=== PATIENT | female | born 1960 | race Caucasian/White ===

== ENCOUNTER 2017-10-14 16:09 | Inpatient (IN) | payer MEDICAID ==
[~2017-10-14] VITALS: Ht 162.6 cm; Wt 52.0 kg
[2017-10-14] VITALS (10 sets, daily range): BP systolic 112–166; BP diastolic 65–87; PULSE 89–116; RESP 16–26; TEMP 98.3–98.6; O2SAT 98–100
[2017-10-14] MEDS ORDERED: LORazepam 2 MG/ML VIAL ONE (16:14)
[2017-10-14] MEDS ORDERED: SODIUM CHLOR 0.9% 1000 ML INJ 1,000 ML IV ONE (16:20)
[2017-10-14] MEDS ORDERED: LORazepam 2 MG/ML VIAL IVS ONE (16:30)
[2017-10-14] MEDS ORDERED: SODIUM CHLORIDE 0.9% FLUSH 10 ML FLUSH IVF PRN (16:30)
[2017-10-14 16:37] LABS: BASOPHIL # 0.1 TH/MM3 (0-0.2); BASOPHIL % 0.7 % (0.0-2.0); EOSINOPHIL % 0.2 % (0.0-4.0); HEMATOCRIT 33.2 % (35.0-46.0); HEMOGLOBIN 11.6 GM/DL (11.6-15.3); LYMPH % 27.6 % (9.0-44.0); LYMPHOCYTE # 3.3 TH/MM3 (1.0-4.8); MEAN CELL VOLUME 109.7 FL (80.0-100.0); MEAN CORPUSCULAR HEMOGLOBIN 38.4 PG (27.0-34.0); MEAN PLATELET VOLUME 8.1 FL (7.0-11.0); MONO % 5.3 % (0.0-8.0); MONOCYTE # 0.6 TH/MM3 (0-0.9); NEUT % 66.2 % (16.0-70.0); PLATELET COUNT 306 TH/MM3 (150-450); RED BLOOD COUNT 3.03 MIL/MM3 (4.00-5.30); RED CELL DISTRIBUTION WIDTH 14.6 % (11.6-17.2)
[2017-10-14 16:52] LABS: BACTERIA, URINE MANY /hpf; BLOOD, URINE SMALL (NEG); GLUCOSE,URINE NEG (NEG); HYALINE CAST, URINE 3 /lpf (RARE); KETONE, URINE 40 mg/dL (NEG); MUCUS URINE MANY /lpf (OCC); NITRITE,URINE NEG (NEG); SQUAMOUS EPITHELIAL CELL URINE 1 /hpf (0-5); URINE COLOR YELLOW (YELLW/STRAW); URINE LEUKOCYTE ESTERASE MOD (NEG)
[2017-10-14 16:53] LABS: BILIRUBIN, URINE NEG (NEG)
[2017-10-14 16:58] LABS: ALBUMIN 4.3 GM/DL (3.4-5.0); ALKALINE PHOSPHATASE 89 U/L (45-117); ALT (GPT) 30 U/L (10-53); AST (GOT) 141 U/L (15-37); BLOOD UREA NITROGEN 9 MG/DL (7-18); CALCIUM 8.5 MG/DL (8.5-10.1); CHLORIDE 97 MEQ/L (98-107); CREATININE 1.22 MG/DL (0.50-1.00); GLOMERULAR FILTRATION RATE 38 ML/MIN (>89); GLUCOSE,RANDOM 177 MG/DL (74-106); SODIUM (NA) 138 MEQ/L (136-145); TOTAL BILIRUBIN ADULT 1.1 MG/DL (0.2-1.0); TOTAL PROTEIN 8.7 GM/DL (6.4-8.2)
--- NOTE | 2017-10-14 17:03 | PD ---
HPI Chief Complaint: Seizure Time Seen by Provider: 16:20 Travel History International Travel<30 days: No Contact w/Intl Traveler<30days: No Traveled to known affect area: No History of Present Illness HPI Patient is a 57-year-old female who presents the emergency room with her boyfriend for evaluation of seizure. As per patient's boyfriend, patient is a heavy alcoholic and drinks more than a pint of alcohol per day, reports that he decided yesterday that patient should stop drinking alcohol. Patient reports that her last drink was yesterday afternoon to nighttime. Reports that this morning, patient woke up feeling nauseous and vomited multiple times. Patient was in the car today when all of a sudden she screams and began flailing her arms, reports that she had a seizure episode. Patient presents the emergency room postictal. Patient's boyfriend reports that patient currently does not take any medications, reports that she has no medical problems. Patient unable to provide HPI at this time. [facility] Past Medical History Medical History: Denies Significant Hx Past Surgical History Surgical History: Unable to Obtain Social History Alcohol Use: Yes (ETOH ABUSE) Tobacco Use: No Substance Use: No Allergies-Medications (Allergen,Severity, Reaction): Coded Allergies: No Known Allergies (Unverified , 10/14/17) Reported Meds & Prescriptions Reported Meds & Active Scripts Active No Active Prescriptions or Reported Medications Review of Systems ROS Limitations: Altered Mental Status Physical Exam Narrative GENERAL: Moderate distress SKIN: Focused skin assessment warm/dry. HEAD: Atraumatic. Normocephalic. EYES: Pupils equal and round. No scleral icterus. No injection or drainage. ENT: No nasal bleeding or discharge. Mucous membranes pink and moist. NECK: Trachea midline. No JVD. CARDIOVASCULAR: Regular rate and rhythm. No murmur appreciated. RESPIRATORY: No accessory muscle use. Clear to auscultation. Breath sounds equal bilaterally. GASTROINTESTINAL: Abdomen soft, non-tender, nondistended. Hepatic and splenic margins not palpable. MUSCULOSKELETAL: No obvious deformities. No clubbing. No cyanosis. No edema. NEUROLOGICAL patient is not conversive at this time, she is postictal Data Data Last Documented VS Vital Signs Date Time Temp Pulse Resp B/P (MAP) Pulse Ox O2 Delivery O2 Flow Rate FiO2 10/14/17 17:08 26 98 Nasal Cannula 2.00 10/14/17 16:13 98.6 116 166/87 (113) Orders Orders Lorazepam Inj (Ativan Inj) (10/14/17 16:14) Complete Blood Count With Diff (10/14/17 16:20) Alcohol (Ethanol) (10/14/17 16:20) Drug Screen, Random Urine (10/14/17 16:20) Electrocardiogram (10/14/17 ) Blood Glucose (10/14/17 16:20) Ecg Monitoring (10/14/17 16:20) Iv Access Insert/Monitor (10/14/17 16:20) Oximetry (10/14/17 16:20) Comprehensive Metabolic Panel (10/14/17 16:20) Sodium Chlor 0.9% 1000 Ml Inj (Ns 1000 M (10/14/17 16:20) Sodium Chloride 0.9% Flush (Ns Flush) (10/14/17 16:30) Lorazepam Inj (Ativan Inj) (10/14/17 16:30) Urinalysis - C+S If Indicated (10/14/17 16:20) Cath For Specimen (10/14/17 16:20) Urine Culture (10/14/17 16:20) Ceftriaxone Inj (Rocephin Inj) (10/14/17 17:15) Potassium Chlor 20 Meq Premix (Kcl 20 Me (10/14/17 17:15) Labs Laboratory Tests Test 10/14/17 16:20 10/14/17 16:23 Urine Color YELLOW Urine Turbidity HAZY Urine pH 6.0 Urine Specific [place] 1.019 Urine Protein 100 mg/dL Urine Glucose (UA) NEG mg/dL Urine Ketones 40 mg/dL Urine Occult Blood SMALL Urine Nitrite NEG Urine Bilirubin NEG Urine Urobilinogen 2.0 MG/DL Urine Leukocyte Esterase MOD Urine RBC LESS THAN 1 /hpf Urine WBC 20 /hpf Urine Squamous Epithelial Cells 1 /hpf Urine Bacteria MANY /hpf Urine Hyaline Casts 3 /lpf Urine Mucus MANY /lpf Microscopic Urinalysis Comment CATH-CULTURE IND Urine Opiates Screen NEG Urine Barbiturates Screen NEG Urine Amphetamines Screen NEG Urine Benzodiazepines Screen NEG Urine Cocaine Screen POS Urine Cannabinoids Screen NEG White Blood Count 12.0 TH/MM3 Red Blood Count 3.03 MIL/MM3 Hemoglobin 11.6 GM/DL Hematocrit 33.2 % Mean Corpuscular Volume 109.7 FL Mean Corpuscular Hemoglobin 38.4 PG Mean Corpuscular Hemoglobin Concent 35.0 % Red Cell Distribution Width 14.6 % Platelet Count 306 TH/MM3 Mean Platelet Volume 8.1 FL Neutrophils (%) (Auto) 66.2 % Lymphocytes (%) (Auto) 27.6 % Monocytes (%) (Auto) 5.3 % Eosinophils (%) (Auto) 0.2 % Basophils (%) (Auto) 0.7 % Neutrophils # (Auto) 8.0 TH/MM3 Lymphocytes # (Auto) 3.3 TH/MM3 Monocytes # (Auto) 0.6 TH/MM3 Eosinophils # (Auto) 0.0 TH/MM3 Basophils # (Auto) 0.1 TH/MM3 CBC Comment DIFF FINAL Differential Comment Blood Urea Nitrogen 9 MG/DL Creatinine 1.22 MG/DL Random Glucose 177 MG/DL Total Protein 8.7 GM/DL Albumin 4.3 GM/DL Calcium Level 8.5 MG/DL Alkaline Phosphatase 89 U/L Aspartate Amino Transf (AST/SGOT) 141 U/L Alanine Aminotransferase (ALT/SGPT) 30 U/L Total Bilirubin 1.1 MG/DL Sodium Level 138 MEQ/L Potassium Level 2.7 MEQ/L Chloride Level 97 MEQ/L Carbon Dioxide Level 18.0 MEQ/L Anion Gap 23 MEQ/L Estimat Glomerular Filtration Rate 38 ML/MIN Ethyl Alcohol Level LESS THAN 3 MG/DL MDM Medical Decision Making Medical Screen Exam Complete: Yes Emergency Medical Condition: Yes Medical Record Reviewed: Yes Interpretation(s) Vital Signs Date Time Temp Pulse Resp B/P (MAP) Pulse Ox O2 Delivery O2 Flow Rate FiO2 10/14/17 16:13 98.6 116 16 166/87 (113) 100 Differential Diagnosis Alcohol withdrawal seizures, DTs, electrolyte abnormality Narrative Course During the course of the patients emergency department visit, the patients history, examination, and differential diagnosis were reviewed with the patient. The patient was placed on a night monitor with oximetry and frequent blood pressure monitoring. The patient had an IV access obtained and blood work sent for analysis. Patient was placed on seizure precautions The patient was initially provided IV fluids as well as 2 mg of IV Ativan, she is also given 1 mg of IV Rocephin for her UTI The patients laboratory studies were reviewed and remarkable for: Laboratory Tests Test 10/14/17 16:20 10/14/17 16:23 Urine Color YELLOW (YELLW/STRAW) Urine Turbidity HAZY (CLEAR) Urine pH 6.0 (5.0-8.5) Urine Specific [place] 1.019 (1.002-1.035) Urine Protein 100 mg/dL (NEG-TRACE) Urine Glucose (UA) NEG mg/dL (NEG) Urine Ketones 40 mg/dL (NEG) Urine Occult Blood SMALL (NEG) Urine Nitrite NEG (NEG) Urine Bilirubin NEG (NEG) Urine Urobilinogen 2.0 MG/DL (LESS THAN Urine Leukocyte Esterase MOD (NEG) Urine RBC LESS THAN 1 /hpf (0-3) Urine WBC 20 /hpf (0-5) Urine Squamous Epithelial Cells 1 /hpf (0-5) Urine Bacteria MANY /hpf (NONE) Urine Hyaline Casts 3 /lpf (RARE) Urine Mucus MANY /lpf (OCC) Microscopic Urinalysis Comment CATH-CULTURE IND Urine Opiates Screen NEG (NEG) Urine Barbiturates Screen NEG (NEG) Urine Amphetamines Screen NEG (NEG) Urine Benzodiazepines Screen NEG (NEG) Urine Cocaine Screen POS (NEG) Urine Cannabinoids Screen NEG (NEG) White Blood Count 12.0 TH/MM3 (4.0-11.0) Red Blood Count 3.03 MIL/MM3 (4.00-5.30) Hemoglobin 11.6 GM/DL (11.6-15.3) Hematocrit 33.2 % (35.0-46.0) Mean Corpuscular Volume 109.7 FL (80.0-100.0) Mean Corpuscular Hemoglobin 38.4 PG (27.0-34.0) Mean Corpuscular Hemoglobin Concent 35.0 % (32.0-36.0) Red Cell Distribution Width 14.6 % (11.6-17.2) Platelet Count 306 TH/MM3 (150-450) Mean Platelet Volume 8.1 FL (7.0-11.0) Neutrophils (%) (Auto) 66.2 % (16.0-70.0) Lymphocytes (%) (Auto) 27.6 % (9.0-44.0) Monocytes (%) (Auto) 5.3 % (0.0-8.0) Eosinophils (%) (Auto) 0.2 % (0.0-4.0) Basophils (%) (Auto) 0.7 % (0.0-2.0) Neutrophils # (Auto) 8.0 TH/MM3 (1.8-7.7) Lymphocytes # (Auto) 3.3 TH/MM3 (1.0-4.8) Monocytes # (Auto) 0.6 TH/MM3 (0-0.9) Eosinophils # (Auto) 0.0 TH/MM3 (0-0.4) Basophils # (Auto) 0.1 TH/MM3 (0-0.2) CBC Comment DIFF FINAL Differential Comment Blood Urea Nitrogen 9 MG/DL (7-18) Creatinine 1.22 MG/DL (0.50-1.00) Random Glucose 177 MG/DL (74-106) Total Protein 8.7 GM/DL (6.4-8.2) Albumin 4.3 GM/DL (3.4-5.0) Calcium Level 8.5 MG/DL (8.5-10.1) Alkaline Phosphatase 89 U/L (45-117) Aspartate Amino Transf (AST/SGOT) 141 U/L (15-37) Alanine Aminotransferase (ALT/SGPT) 30 U/L (10-53) Total Bilirubin 1.1 MG/DL (0.2-1.0) Sodium Level 138 MEQ/L (136-145) Potassium Level 2.7 MEQ/L (3.5-5.1) Chloride Level 97 MEQ/L (98-107) Carbon Dioxide Level 18.0 MEQ/L (21.0-32.0) Anion Gap 23 MEQ/L (5-15) Estimat Glomerular Filtration Rate 38 ML/MIN (>89) Ethyl Alcohol Level LESS THAN 3 MG/DL (0-5) Patient now awake and alert, reports allergy to sulfa, denies history of medical problems. Patient with no history of seizures in the past, will admit for alcohol withdrawal seizures with [facility] protocol Diagnosis Primary Impression: Alcohol withdrawal seizure Qualified Codes: F10.239 - Alcohol dependence with withdrawal, unspecified; R56.9 - Unspecified convulsions Additional Impression: UTI (urinary tract infection) Qualified Codes: N39.0 - Urinary tract infection, site not specified Admitting Information Admitting Physician Requests: Observation Scripts No Active Prescriptions or Reported Meds Eunice Elizabeth DO October 14, 2017 17:03
[2017-10-14] MEDS ORDERED: cefTRIAXone INJ 1,000 MG in SODIUM CHLORIDE 0.9% INJ 100 ML IV ONE (17:15)
[2017-10-14] MEDS: POTASSIUM CHLOR 20 MEQ PREMIX 100 ML IV SCH ×2 (17:39→19:44)
[2017-10-14] MEDS ORDERED: HALOPERIDOL LACTATE 5 MG/ML AMP IM PRN (19:00)
[2017-10-14] MEDS ORDERED: MAGNESIUM HYDROXIDE SUSP 30 ML CUP PO PRN (19:00)
[2017-10-14] MEDS ORDERED: SENNOSIDES 8.6 MG TAB PO PRN (19:00)
[2017-10-14] MEDS ORDERED: LACTULOSE SYRUP 20 GM/30 ML CUP PO PRN (19:00)
[2017-10-14] MEDS ORDERED: THIAMINE INJ 100 MG in SODIUM CHLORIDE 0.9% INJ 100 ML IV SCH (19:00)
[2017-10-14] MEDS ORDERED: LORazepam 2 MG TAB PO PRN (19:00)
[2017-10-14] MEDS ORDERED: LORazepam 1 MG TAB PO PRN (19:00)
[2017-10-14] MEDS ORDERED: LORazepam 2 MG/ML VIAL IV PUSH PRN ×5 (19:00)
[2017-10-14] MEDS ORDERED: BISACODYL 10 MG SUPP RECTAL PRN (19:00)
[2017-10-14] MEDS ORDERED: SODIUM CHLORIDE 0.9% FLUSH 10 ML FLUSH IV FLUSH PRN (19:00)
[2017-10-14] MEDS ORDERED: FLUMAZENIL 0.5 MG/5 ML VIAL IV PUSH PRN (19:00)
[2017-10-14] MEDS ORDERED: ACETAMINOPHEN 325 MG TAB PO PRN (19:00)
[2017-10-14] MEDS ORDERED: ONDANSETRON HCL 4 MG/2 ML VIAL IVP PRN (19:00)
[2017-10-14] MEDS: SODIUM CHLOR 0.9% 1000 ML INJ 1,000 ML IV SCH (19:44)
--- NOTE | 2017-10-14 19:59 | HHI.HP ---
HPI Service [facility] Primary Care Physician No Primary Care Physician Admission Diagnosis New onset seizure, hypokalemia Diagnoses: (1) Encephalopathy Diagnosis: Principal (2) Seizure Diagnosis: Principal (3) Alcohol abuse Diagnosis: Principal (4) Cocaine abuse Diagnosis: Principal (5) UTI (urinary tract infection) Diagnosis: Principal (6) Hypokalemia Diagnosis: Principal Travel History International Travel<30 Days: No Contact w/Intl Traveler <30 Da: No Traveled to Known Affected Are: No History of Present Illness This is a 56-year-old female (Claire Antunez) w/ a PMH of Alcohol Abuse and Cocaine Abuse, who was brought to the ER as a Tati Velazquez for AMS and Seizure. History obtained from records and patient's Mother who is at bedside as pt is post-ictal/lethargic. Mother states pt's boyfriend called her and said pt had seizure-like activity on the way to mother's house. Per records, boyfriend states pt is heavy alcoholic, has been having nausea/vomiting for the last 2-3 days and hasn't been drinking as much as she normally does. On arrival, BP 166/ 87, HR 116, O2 sat 100% RA, Afebrile. WBC 12.0. K+ 2.7. Creatinine 1.22, no previous labs for comparison. UA positive for UTI. Urine Drug Screen positive for Cocaine. Pt more responsive now, answering few questions however history limited. Review of Systems Except as stated in HPI: all other systems reviewed are Neg ROS: 14 point review of systems otherwise negative. Past Family Social History Past Medical History PMH: Alcohol Abuse and Cocaine Abuse Past Surgical History PAST SURGICAL HISTORY: Unknown Allergies: Coded Allergies: No Known Allergies (Unverified , 10/14/17) Family History PAST FAMILY HISTORY: Reviewed. No h/o DM or CAD Social History PAST SOCIAL HISTORY: Positive for alcohol abuse. Reportedly negative for tobacco. Positive for cocaine. Physical Exam Vital Signs Vital Signs Date Time Temp Pulse Resp B/P (MAP) Pulse Ox O2 Delivery O2 Flow Rate FiO2 10/14/17 19:30 95 16 115/72 (86) 99 Nasal Cannula 2.00 10/14/17 18:30 96 22 117/77 (90) 100 Nasal Cannula 2.00 10/14/17 18:00 100 20 121/75 (90) 100 Nasal Cannula 2.00 10/14/17 17:30 104 22 131/77 (95) 100 Nasal Cannula 2.00 10/14/17 17:08 26 98 Nasal Cannula 2.00 10/14/17 17:00 96 24 112/69 (83) 100 Nasal Cannula 2.00 10/14/17 16:30 104 24 144/84 (104) 100 Nasal Cannula 2.00 10/14/17 16:13 98.6 116 16 166/87 (113) 100 Physical Exam PE: GENERAL: Middle-aged white female in no acute distress, lethargic. Mother at bedside. HEENT: PERRLA, EOMI. No scleral icterus or conjunctival pallor. No lid lag or facial droop. CARDIOVASCULAR: Regular rate and rhythm. No obvious murmurs to auscultation. No chest tenderness to palpation. RESPIRATORY: No obvious rhonchi or wheezing. Clear to auscultation. Breath sounds equal bilaterally. GASTROINTESTINAL: Abdomen soft, non-tender, nondistended. BS normal. MUSCULOSKELETAL: Extremities without clubbing, cyanosis, or edema. No obvious deformities. NEUROLOGICAL: Lethargic, postictal, answering few questions. No focal neurologic deficits. Moving both upper and lower extremities spontaneously. Laboratory Laboratory Tests Test 10/14/17 16:20 10/14/17 16:23 Urine Color YELLOW Urine Turbidity HAZY Urine pH 6.0 Urine Specific [place] 1.019 Urine Protein 100 Urine Glucose (UA) NEG Urine Ketones 40 Urine Occult Blood SMALL Urine Nitrite NEG Urine Bilirubin NEG Urine Urobilinogen 2.0 Urine Leukocyte Esterase MOD Urine RBC LESS THAN 1 Urine WBC 20 Urine Squamous Epithelial Cells 1 Urine Bacteria MANY Urine Hyaline Casts 3 Urine Mucus MANY Microscopic Urinalysis Comment CATH-CULTURE IND Urine Opiates Screen NEG Urine Barbiturates Screen NEG Urine Amphetamines Screen NEG Urine Benzodiazepines Screen NEG Urine Cocaine Screen POS Urine Cannabinoids Screen NEG White Blood Count 12.0 Red Blood Count 3.03 Hemoglobin 11.6 Hematocrit 33.2 Mean Corpuscular Volume 109.7 Mean Corpuscular Hemoglobin 38.4 Mean Corpuscular Hemoglobin Concent 35.0 Red Cell Distribution Width 14.6 Platelet Count 306 Mean Platelet Volume 8.1 Neutrophils (%) (Auto) 66.2 Lymphocytes (%) (Auto) 27.6 Monocytes (%) (Auto) 5.3 Eosinophils (%) (Auto) 0.2 Basophils (%) (Auto) 0.7 Neutrophils # (Auto) 8.0 Lymphocytes # (Auto) 3.3 Monocytes # (Auto) 0.6 Eosinophils # (Auto) 0.0 Basophils # (Auto) 0.1 CBC Comment DIFF FINAL Differential Comment Blood Urea Nitrogen 9 Creatinine 1.22 Random Glucose 177 Total Protein 8.7 Albumin 4.3 Calcium Level 8.5 Alkaline Phosphatase 89 Aspartate Amino Transf (AST/SGOT) 141 Alanine Aminotransferase (ALT/SGPT) 30 Total Bilirubin 1.1 Sodium Level 138 Potassium Level 2.7 Chloride Level 97 Carbon Dioxide Level 18.0 Anion Gap 23 Estimat Glomerular Filtration Rate 38 Ethyl Alcohol Level LESS THAN 3 Date/Time Source Procedure Growth Status 10/14/17 16:20 Urine Catheterized Urine Urine Culture Pending Received Result Diagram: 10/14/17 1623 10/14/17 1623 Caprini VTE Risk Assessment Caprini VTE Risk Assessment: No/Low Risk (score <= 1) Caprini Risk Assessment Model Point Value = 1 Point Value = 2 Point Value = 3 Point Value = 5 Age 41-60 Minor surgery BMI > 25 kg/m2 Swollen legs Varicose veins or History of unexplained or recurrent spontaneous Oral contraceptives or hormone replacement Sepsis (< 1 month) Serious lung disease, including pneumonia (< 1 month) Abnormal pulmonary function Acute myocardial infarction Congestive heart failure (< 1 month) History of inflammatory bowel disease Medical patient at bed rest Age 61-74 Arthroscopic surgery Major open surgery (> 45 min) Laparoscopic surgery (> 45 min) Malignancy Confined to bed (> 72 hours) Immobilizing plaster cast Central venous access Age >= 75 History of VTE Family history of VTE Factor V Leiden Prothrombin [id number] Lupus anticoagulant Anticardiolipin antibodies Elevated serum homocysteine Heparin-induced thrombocytopenia Other congenital or acquired thrombophilia Stroke (< 1 month) Elective arthroplasty Hip, pelvis, or leg fracture Acute spinal cord injury (< 1 month) Prophylaxis Regimen Total Risk Factor Score Risk Level Prophylaxis Regimen 0-1 Low Early ambulation 2 Moderate Order ONE of the following: *Sequential Compression Device (SCD) *Heparin 5000 units SQ BID 3-4 Higher Order ONE of the following medications: *Heparin 5000 units SQ TID *Enoxaparin/Lovenox 40 mg SQ daily (WT < 150 kg, CrCl > 30 mL/min) *Enoxaparin/Lovenox 30 mg SQ daily (WT < 150 kg, CrCl > 10-29 mL/min) *Enoxaparin/Lovenox 30 mg SQ BID (WT < 150 kg, CrCl > 30 mL/min) AND/OR *Sequential Compression Device (SCD) 5 or more Highest Order ONE of the following medications: *Heparin 5000 units SQ TID (Preferred with Epidurals) *Enoxaparin/Lovenox 40 mg SQ daily (WT < 150 kg, CrCl > 30 mL/min) *Enoxaparin/Lovenox 30 mg SQ daily (WT < 150 kg, CrCl > 10-29 mL/min) *Enoxaparin/Lovenox 30 mg SQ BID (WT < 150 kg, CrCl > 30 mL/min) AND *Sequential Compression Device (SCD) Assessment and Plan Problem List: (1) Encephalopathy ICD Code: G93.40 - Encephalopathy, unspecified (2) Seizure ICD Code: R56.9 - Unspecified convulsions (3) UTI (urinary tract infection) ICD Code: N39.0 - Urinary tract infection, site not specified Status: Acute (4) Hypokalemia ICD Code: E87.6 - Hypokalemia (5) Cocaine abuse ICD Code: F14.10 - Cocaine abuse, uncomplicated (6) Alcohol abuse ICD Code: F10.10 - Alcohol abuse, uncomplicated Assessment and Plan A/P: 1. Encephalopathy: Likely related to seizure-activity w/ post-ictal state and Ativan. Neuro checks. Hold narcotics. 2. Seizure: Likely secondary to Alcohol-Withdrawal and Cocaine Abuse, Seizure Precautions, CIWA, Ativan prn for seizure activity, consult Neurology as needed. 3. UTI: U/a w/ UTI, s/p Rocephin in ER, will continue w/ IV Abx, IVF for hydration. 4. Hypokalemia: K+ 2.7, s/p replacement in ER, will recheck and replace as needed. 5. Alcohol Abuse: w/ Acute Withdrawal/Seizure, CIWA, Seizure Precautions, MVT/ Thiamine/Folate replacement. 6. Cocaine Abuse: Ativan prn. Pt counselled. 7. DVT Prophylaxis: SCD/Teds 8. Social work for d/c planning as needed. 9. Case discussed w/ ER physician at length, labs/records/imaging reviewed by me. Physician Certification 2 Midnight Certification Type: Admission for Inpatient Services Order for Inpatient Services The services are ordered in accordance with Medicare regulations or non- Medicare payer requirements, as applicable. In the case of services not specified as inpatient-only, they are appropriately provided as inpatient services in accordance with the 2-midnight benchmark. Estimated LOS (days): 2 days is the estimated time the patient will need to remain in the hospital, assuming treatment plan goals are met and no additional complications. Post-Hospital Plan: Not yet determined Problem Qualifiers (1) UTI (urinary tract infection): Qualified Codes: N39.0 - Urinary tract infection, site not specified Junie Villa MD October 14, 2017 19:59
[2017-10-14] MEDS ORDERED: THIAMINE INJ 100 MG in SODIUM CHLORIDE 0.9% INJ 100 ML IV ONE (20:00)
[2017-10-14] MEDS: SODIUM CHLORIDE 0.9% FLUSH 10 ML FLUSH IV FLUSH SCH (21:00)
[2017-10-14] MEDS: DOCUSATE SODIUM 50 MG/SENNA 8.6 MG TAB PO SCH (21:56)
[2017-10-15] MEDS: SODIUM CHLOR 0.9% 1000 ML INJ 1,000 ML IV SCH ×2 (05:20→14:13)
[2017-10-15 06:08] VITALS: BP 126/75; PULSE 78; RESP 16; TEMP 98.1; O2SAT 100
[2017-10-15 07:00] VITALS: PULSE 100
[2017-10-15 08:01] VITALS: BP 124/76; PULSE 90; RESP 20; TEMP 98.4; O2SAT 100
[2017-10-15 08:21] LABS: AUTOMATED NEUTROPHIL # 6.1 TH/MM3 (1.8-7.7); BASOPHIL # 0.1 TH/MM3 (0-0.2); BASOPHIL % 0.8 % (0.0-2.0); EOSINOPHIL # 0.2 TH/MM3 (0-0.4); EOSINOPHIL % 2.4 % (0.0-4.0); HEMATOCRIT 32.6 % (35.0-46.0); HEMOGLOBIN 11.1 GM/DL (11.6-15.3); MEAN CELL VOLUME 108.1 FL (80.0-100.0); MEAN CORPUSCULAR HEMOGLOBIN 36.8 PG (27.0-34.0); MEAN PLATELET VOLUME 8.8 FL (7.0-11.0); MONO % 5.4 % (0.0-8.0); MONOCYTE # 0.4 TH/MM3 (0-0.9); NEUT % 78.4 % (16.0-70.0); PLATELET COUNT 244 TH/MM3 (150-450); RED BLOOD COUNT 3.01 MIL/MM3 (4.00-5.30); RED CELL DISTRIBUTION WIDTH 14.7 % (11.6-17.2); WHITE BLOOD COUNT 7.8 TH/MM3 (4.0-11.0)
[2017-10-15 08:49] LABS: ALBUMIN 3.3 GM/DL (3.4-5.0); ALKALINE PHOSPHATASE 72 U/L (45-117); ALT (GPT) 24 U/L (10-53); AST (GOT) 92 U/L (15-37); BICARBONATE 21.3 MEQ/L (21.0-32.0); BLOOD UREA NITROGEN 5 MG/DL (7-18); CALCIUM 7.5 MG/DL (8.5-10.1); CHLORIDE 108 MEQ/L (98-107); CREATININE 0.59 MG/DL (0.50-1.00); GLOMERULAR FILTRATION RATE 105 ML/MIN (>89); GLUCOSE,RANDOM 59 MG/DL (74-106); SODIUM (NA) 142 MEQ/L (136-145)
[2017-10-15] MEDS: SODIUM CHLORIDE 0.9% FLUSH 10 ML FLUSH IV FLUSH SCH (08:59)
[2017-10-15] MEDS: DOCUSATE SODIUM 50 MG/SENNA 8.6 MG TAB PO SCH (09:00)
[2017-10-15] MEDS ORDERED: THIAMINE HCL 100 MG TAB PO SCH (09:00)
[2017-10-15] MEDS ORDERED: MULTIVITAMINS/MINERALS THERAPEUTIC TAB PO SCH (09:00)
[2017-10-15] MEDS ORDERED: FOLIC ACID 1 MG TAB PO SCH (09:00)
--- NOTE | 2017-10-15 10:34 | EKG ---
Date Performed: 10/14/2017 Time Performed: 16:32:09 PTAGE: 89 years EKG: SINUS TACHYCARDIA POSSIBLE LEFT ATRIAL ENLARGEMENT ABNORMAL RHYTHM ECG NO PREVIOUS TRACING DOCTOR: Jason De Los Santos Interpretating Date/Time 10/15/2017 10:32:18
[2017-10-15] MEDS ORDERED: POTASSIUM CHLORIDE 10 MEQ CONTROLLED RELEASE TAB PO ONE (10:45)
[2017-10-15 11:08] VITALS: BP 134/68; PULSE 97; RESP 20; TEMP 98.6; O2SAT 100
--- NOTE | 2017-10-15 11:33 | HHI.PR ---
Subjective Remarks Follow up for seizure, hypokalemia. The patient is awake, alert, oriented x4. She has no recollection of the seizure. No seizure activity overnight. She admits that she has been trying to quit drinking over the past few days. She has been drinking 1/2 to 1 pint of liquor daily for many years. She denies any prior seizures. She plans to quit drinking upon discharge. Objective Vitals Vital Signs Date Time Temp Pulse Resp B/P (MAP) Pulse Ox O2 Delivery O2 Flow Rate FiO2 10/15/17 11:08 98.6 97 20 134/68 (90) 100 10/15/17 08:01 98.4 90 20 124/76 (92) 100 10/15/17 06:08 98.1 78 16 126/75 (92) 100 10/14/17 22:04 90 10/14/17 21:42 98.3 89 17 120/65 (83) 100 10/14/17 21:06 10/14/17 19:30 95 16 115/72 (86) 99 Nasal Cannula 2.00 10/14/17 18:30 96 22 117/77 (90) 100 Nasal Cannula 2.00 10/14/17 18:00 100 20 121/75 (90) 100 Nasal Cannula 2.00 10/14/17 17:30 104 22 131/77 (95) 100 Nasal Cannula 2.00 10/14/17 17:08 26 98 Nasal Cannula 2.00 10/14/17 17:00 96 24 112/69 (83) 100 Nasal Cannula 2.00 10/14/17 16:30 104 24 144/84 (104) 100 Nasal Cannula 2.00 10/14/17 16:13 98.6 116 16 166/87 (113) 100 I/O 10/14/17 10/14/17 10/14/17 10/15/17 10/15/17 10/15/17 07:00 15:00 23:00 07:00 15:00 23:00 Intake Total 1200 ml Balance 1200 ml Intake IV Total 1200 ml Result Diagram: 10/15/17 0700 10/15/17 07 Objective Remarks GENERAL: Well-nourished, well-developed thin middle aged female patient in [facility]. SKIN: Warm and dry. No rash. HEENT: Normocephalic. Atraumatic.Pupils equal and round. Mucous membranes pink and moist. NECK: Supple. Trachea midline. CARDIOVASCULAR: Regular rate and rhythm. No murmur appreciated. RESPIRATORY: No accessory muscle use. Clear to auscultation. Breath sounds equal bilaterally. GASTROINTESTINAL: Abdomen soft, non-tender, nondistended. Normoactive bowel sounds x4. MUSCULOSKELETAL: No obvious deformities. Extremities without clubbing, cyanosis , or edema. NEUROLOGICAL: AAOx4. No obvious cranial nerve deficits. Motor grossly within normal limits. Normal speech. Non-tremulous. PSYCHIATRIC: Appropriate mood and affect; insight and judgment normal. Medications and IVs Current Medications Medications (Trade) Dose Ordered Sig/Sha Route Start Time Stop Time Status Last Admin (Folate) 1 mg DAILY PO 10/15/17 09:00 10/20/17 08:59 10/15/17 08:59 (Theragran M Tab) 1 tab DAILY PO 10/15/17 09:00 10/20/17 08:59 10/15/17 08:58 (Romazicon Inj) 0.2 mg Q1M PRN IV PUSH 10/14/17 19:00 (Ativan) 1 mg Q4H PRN PO 10/14/17 19:00 (Ativan Inj) 1 mg Q4H PRN IV PUSH 10/14/17 19:00 (Ativan) 2 mg Q2H PRN PO 10/14/17 19:00 (Ativan Inj) 2 mg Q2H PRN IV PUSH 10/14/17 19:00 (Ativan Inj) 2 mg Q1H PRN IV PUSH 10/14/17 19:00 (Ativan Inj) 2 mg Q15M PRN IV PUSH 10/14/17 19:00 (Haldol Inj) 2 mg Q15M PRN IM 10/14/17 19:00 (Ativan Inj) 1 mg Q5M PRN IV PUSH 10/14/17 19:00 Ceftriaxone Sodium 1000 mg/ Sodium Chloride 100 ml @ 200 mls/hr Q24H IV 10/15/17 18:00 Sodium Chloride 1,000 ml @ 100 mls/hr Q10H IV 10/14/17 19:00 10/15/17 05:20 (NS Flush) 2 ml UNSCH PRN IV FLUSH 10/14/17 19:00 (NS Flush) 2 ml BID IV FLUSH 10/14/17 21:00 10/15/17 08:59 (Zofran Inj) 4 mg Q6H PRN IVP 10/14/17 19:00 (Tylenol) 650 mg Q6H PRN PO 10/14/17 19:00 (Shivani-Colace) 1 tab BID PO 10/14/17 21:00 (Milk Of Magnesia Liq) 30 ml Q12H PRN PO 10/14/17 19:00 (Senokot) 17.2 mg Q12H PRN PO 10/14/17 19:00 (Dulcolax Supp) 10 mg DAILY PRN RECTAL 10/14/17 19:00 (Lactulose Liq) 30 ml DAILY PRN PO 10/14/17 19:00 (Vitamin B1) 100 mg DAILY PO 10/15/17 09:00 10/15/17 08:58 A/P Problem List: (1) Encephalopathy ICD Code: G93.40 - Encephalopathy, unspecified (2) Seizure ICD Code: R56.9 - Unspecified convulsions (3) UTI (urinary tract infection) ICD Code: N39.0 - Urinary tract infection, site not specified Status: Acute (4) Hypokalemia ICD Code: E87.6 - Hypokalemia (5) Cocaine abuse ICD Code: F14.10 - Cocaine abuse, uncomplicated (6) Alcohol abuse ICD Code: F10.10 - Alcohol abuse, uncomplicated Assessment and Plan 56-year-old female (Claire Antunez) w/ a PMH of Alcohol Abuse and Cocaine Abuse, who was brought to the ER as a Tati Velazquez for AMS and Seizure. Encephalopathy: Likely related to seizure-activity w/ post-ictal state and Ativan. -Neuro checks. -Hold narcotics. -Observed in observation overnight. Patient now AAOx4. Resolved. Seizure: Strongly suspect secondary to Alcohol-Withdrawal and Cocaine Abuse, patient tried to stop drinking alcohol 2 days ago, ETOH level 3 upon arrival. -Seizure Precautions, CIWA, Ativan prn for seizure activity -EEG done, abnormal but no epileptiform activity, discussed with Dr. Alejo, no seizure activity and likely medication side effect -no further seizures overnight, stable for discharge. UTI: U/a w/ UTI -Continue on IV Rocephin -Preliminary urine culture with gram negative tomás -will transition to po antibiotics at discharge Hypokalemia: K+ 2.7, s/p replacement in ER -repeat K 3.2, give additional KCl 60meq po -mag 1.3, give IV Mag sulfate x2G now -repeat labs this afternoon Alcohol Abuse: w/ Acute Withdrawal/Seizure as above -Continue CIWA -Seizure Precautions -MVT/Thiamine/Folate replacement. -Patient plans to quit drinking at discharge, will give short course librium taper, strongly advised cannot drink any alcohol with this medication Cocaine Abuse: Ativan prn. Pt counselled. DVT Prophylaxis: SCD/Teds Discharge Planning Likely discharge later today if labs improve and no further seizure activity. Discharge patient to home Condition on discharge: Stable Regular Diet as tolerated Ad Belem activity Rx written: thiamine, folate, MV, librium taper, Ceftin 250mg bid x3days Follow-up with primary care physician within 1 week Follow up with [facility] for alcohol detox/rehab Problem Qualifiers (1) UTI (urinary tract infection): Qualified Codes: N39.0 - Urinary tract infection, site not specified Katey Centeno PA-C October 15, 2017 11:32 am
--- NOTE | 2017-10-15 12:37 | MG ---
cc: Chloe Alejo MD EEG NUMBER: [id number] (AKA: [id number]) Referred by Samantha MENDOZA. In room H89 with hyperventilation, photic stimulation, awake, drowsy asleep study. UDS positive for cocaine. Admitted with a seizure. Heavy alcohol. The patient is an alcoholic, drinks more than a pint of alcohol per day. Had vomited multiple times in the car and possibly had a seizure. On Rocephin, folic acid, thiamine. DESCRIPTION OF RECORD: Low-amplitude EEG, but overall, there is some faster frequency waves seen at times, may be beta frequency. Photic stimulation, there is a posterior driving response. Hyperventilation was started. There is a lot of muscle artifact, but overall symmetrical background. No epileptiform features. Attenuation as she tends to fall asleep. IMPRESSION: Abnormal EEG due to faster frequency waves seen described as a beta frequency, may be due to benzodiazepines, medicine effect, but there are no epileptiform features otherwise in the recording. Clinical correlation. Chloe Alejo MD DF/TL , 11:03 AM , 11:20 AM
[2017-10-15] MEDS ORDERED: THERM PO (13:47)
[2017-10-15] MEDS ORDERED: CHLO10CA5 PO (13:47)
[2017-10-15] MEDS ORDERED: FOLI1TAB6 PO (13:47)
[2017-10-15] MEDS ORDERED: CEFU1TAB18 PO (13:47)
[2017-10-15] MEDS ORDERED: THIA100 PO (13:47)
--- NOTE | 2017-10-15 13:47 | HHI.DCPOC ---
Discharge Care Plan Diagnosis: (1) Alcohol withdrawal seizure (2) UTI (urinary tract infection) (3) Alcohol abuse (4) Hypokalemia Goals to Promote Your Health * To prevent worsening of your condition and complications * To maintain your health at the optimal level Directions to Meet Your Goals Take your medications as prescribed Follow your dietary instruction Follow activity as directed Keep your appointments as scheduled Take your immunizations and boosters as scheduled If your symptoms worsen call your PCP, if no PCP go to Urgent Care Center or Emergency Room Smoking is Dangerous to Your Health. Avoid second hand smoke Call the 24-hour hour crisis hotline for domestic abuse at Katey Centeno PA-C October 15, 2017 13:47
[2017-10-15] MEDS: MAGNESIUM SULFATE 1 GM PREMIX 100 ML IV SCH ×2 (14:13→14:30)
[2017-10-15 17:13] VITALS: BP 102/61; PULSE 95; RESP 20; TEMP 99; O2SAT 98
[2017-10-15] MEDS ORDERED: cefTRIAXone INJ 1,000 MG in SODIUM CHLORIDE 0.9% INJ 100 ML IV SCH (18:00)
[2017-10-15 20:18] LABS: MAGNESIUM 2.1 MG/DL (1.5-2.5)
== END 2017-10-15 22:21 | disposition home or self-care (01) | DRG 896 ==
LOC: NEPC 16:09 → NEDA 18:31 → OBSVTOIN 18:56 → NEDA 18:59 → EDBD 18:59 → UNDOADMOB 18:59 → NEPHCDU 21:12 → NEDA 21:12 → UNDODISOB 10-15 22:21
PROVIDERS: ADMIT Hospitalist; ATTEND Hospitalist
DX: F10.239 Alcohol dependence with withdrawal, unspecified (principal); G93.40 Encephalopathy, unspecified; F14.10 Cocaine abuse, uncomplicated; G40.89 Other seizures; N39.0 Urinary tract infection, site not specified; E87.6 Hypokalemia; Y90.0 Blood alcohol level of less than 20 mg/100 ml
CPT/HCPCS: 80053; 80307; 81001; 83735; 84132; 85025; 87077; 87086; 87186; 93005; 95819; 96361; 96365; 96368; 96375; J0696; J2060; J3411; J3475; J3480; J7030; P9612